=== PATIENT | male | born 1960 | race Caucasian/White ===

== ENCOUNTER 2021-01-06 16:29 | Outpatient (CLI) | payer OTHER, SELFPAY | END 2021-01-06 16:30 | PROVIDERS: PCP Internal Medicine | DX: Z23 Encounter for immunization (principal) | CPT/HCPCS: 0001A; 91300 ==

== ENCOUNTER 2021-01-27 15:59 | Outpatient (CLI) | payer OTHER, SELFPAY | END 2021-01-27 16:00 | disposition home or self-care (01) | LOC: ANHCOVIDVC 15:59 | PROVIDERS: PCP Internal Medicine | DX: Z23 Encounter for immunization (principal) | CPT/HCPCS: 0002A; 91300 ==

== ENCOUNTER 2021-09-11 20:54 | Emergency (ER) | payer OTHER, SELFPAY ==
--- NOTE | 2021-09-11 21:18 | PC.NURSE ---
Pt pulled into triage for assessment, prior to triage states My knee surgery was at [facility], I think I may just go there to be checked out. I dont want to end up being transferred there anyway. This RN states We are happy to see you even if the surgery was not done here, the ER physician is capable of evaluating your leg and discussing the results/POC with your surgeon at [facility]. Pt states he called the surgeon and was instructed to have an u/s and labs drawn to r/o a blood clot vs infection. Pt states he is going to head there, declined vitals or triage assessment.
== END 2021-09-12 04:04 | disposition left against medical advice (07) ==
PROVIDERS: PCP Internal Medicine
DX: Z53.21 Procedure and treatment not carried out due to patient leaving prior to being seen by health care provider (principal)
CPT/HCPCS: 99199

== ENCOUNTER → 2021-11-01 15:54 | Outpatient (CLI) | payer OTHER, SELFPAY ==
--- NOTE | ~2021-11-01 | XR_ITS ---
XR lumbar spine 2-3V 11/01/2021 16:38 Indication: Low back pain Procedure: 3 views lumbar spine Comparison: No prior studies for comparison. Findings: There is mild wedge deformity of T11 and T12, likely chronic. There is disc narrowing at al l lumbar levels. There are posterior spinal fusion changes at L4-5. No acute fracture or traumatic ma lalignment. There is advanced multilevel facet degenerative change. There are prominent marginal osteophytes at each level. Impression: 1: Severe lumbar spondylosis with posterior spinal fusion at L4-5. Reviewed, dictated and finalized at location B. LATION NOZZLEMAN Impression: 1: Severe lumbar spondylosis with posterior spinal fusion at L4-5.
== END ==
PROVIDERS: PCP Nurse Practitioner; Visit Provider Nurse Practitioner
DX: M54.50 Low back pain, unspecified (principal); Z98.1 Arthrodesis status; M47.816 Spondylosis without myelopathy or radiculopathy, lumbar region
CPT/HCPCS: 72100